=== PATIENT | female | born 1995 | race Caucasian/White ===

== ENCOUNTER 2016-07-13 13:13 | Emergency (ER) | payer OTHER ==
[~2016-07-13] VITALS: Ht 160 cm; Wt 53.5 kg
[2016-07-13] MEDS ORDERED: KETOROLAC 30 MG/1 ML IM ONE (14:00)
[2016-07-13] MEDS ORDERED: KETOROLAC 30 MG/1 ML ONE (14:02)
[2016-07-13 15:08] VITALS: BP 106/70
== END 2016-07-13 15:11 | disposition home or self-care (01) ==
LOC: ED 15:06
DX: G44.219 Episodic tension-type headache, not intractable (principal); J00 Acute nasopharyngitis [common cold]
CPT/HCPCS: 71020; 96372; 99284; J1885

== ENCOUNTER 2016-08-09 14:07 | Emergency (ER) | payer OTHER ==
[~2016-08-09] VITALS: Ht 160 cm; Wt 53.8 kg
[2016-08-09 14:31] VITALS: BP 119/80
== END 2016-08-09 16:12 | disposition home or self-care (01) ==
LOC: ED 15:43
DX: J30.2 Other seasonal allergic rhinitis (principal)
CPT/HCPCS: 71020; 99284

== ENCOUNTER 2016-10-28 15:15 | Emergency (ER) | payer OTHER ==
[~2016-10-28] VITALS: Ht 160 cm; Wt 52.0 kg
[2016-10-28 15:53] LABS: HEMATOCRIT 46.8 % (34.6-47.8); HEMOGLOBIN 15.9 g/dL (11.7-16.4); WHITE BLOOD COUNT 13.3 x10^3/uL (3.4-10)
[2016-10-28 16:01] LABS: BLOOD UREA NITROGEN 13 mg/dL (7-18)
[2016-10-28 17:03] VITALS: BP 127/68
== END 2016-10-28 17:48 | disposition home or self-care (01) ==
LOC: ED 17:42
DX: N89.8 Other specified noninflammatory disorders of vagina (principal)
CPT/HCPCS: 36415; 80048; 81003; 82040; 84703; 85025; 87210; 87491; 87591; 87808; 99284

== ENCOUNTER 2016-12-24 22:04 | Emergency (ER) | payer OTHER ==
[~2016-12-24] VITALS: Ht 160 cm; Wt 50.4 kg
[2016-12-24 23:12] LABS: HEMATOCRIT 42.9 % (34.6-47.8); HEMOGLOBIN 14.5 g/dL (11.7-16.4); WHITE BLOOD COUNT 10.5 x10^3/uL (3.4-10)
[2016-12-24 23:25] LABS: BLOOD UREA NITROGEN 14 mg/dL (7-18)
[2016-12-24 23:31] LABS: IS PT STATUS REG ER OR PRE ER? YES
[2016-12-24 23:49] VITALS: BP 112/74
== END 2016-12-24 23:52 | disposition home or self-care (01) ==
LOC: ED 22:58
DX: R07.2 Precordial pain (principal); J02.8 Acute pharyngitis due to other specified organisms
CPT/HCPCS: 36415; 71020; 80048; 82040; 84484; 84703; 85025; 87081; 87880; 93005; 99285

== ENCOUNTER 2017-11-25 06:11 | Emergency (ER) | payer OTHER ==
[~2017-11-25] VITALS: Ht 157.5 cm; Wt 52.4 kg
[2017-11-25 08:46] VITALS: BP 134/84
== END 2017-11-25 08:49 | disposition home or self-care (01) ==
LOC: ED 08:47
DX: B02.29 Other postherpetic nervous system involvement (principal)
CPT/HCPCS: 99284

== ENCOUNTER 2017-12-01 19:30 | Emergency (ER) | payer OTHER ==
[~2017-12-01] VITALS: Ht 157.5 cm; Wt 55.6 kg
[2017-12-01 19:38] VITALS: BP 112/76
[2017-12-01] MEDS ORDERED: CEFTRIAXONE 250 MG IM ONE (20:00)
[2017-12-01] MEDS ORDERED: AZITHROMYCIN 500 MG TABLET PO ONE (20:00)
[2017-12-01] MEDS ORDERED: AZITHROMYCIN 250 MG TABLET ONE (21:14)
[2017-12-01] MEDS ORDERED: LIDOCAINE-MPF 1%, 2ML ONE (21:14)
[2017-12-01] MEDS ORDERED: CEFTRIAXONE 250 MG ONE (21:14)
[2017-12-01 21:41] LABS: MICROSCOPIC AUTO
[2017-12-01 21:49] LABS: CULTURE INDICATED? YES
[2017-12-01 21:49] LABS: CLUE CELLS NONE SEEN (NONE SEEN); WET PREP WBCS MANY (FEW)
== END 2017-12-01 22:56 | disposition home or self-care (01) ==
LOC: ED 21:02
DX: N30.00 Acute cystitis without hematuria (principal)
CPT/HCPCS: 36415; 81001; 87086; 87210; 87491; 87591; 87806; 87808; 96372; 99284; J0696; G0475